=== PATIENT | male | born 1945 | race Caucasian/White ===

== ENCOUNTER → 2024-08-14 06:30 | Outpatient (REF) | payer MEDICARE, SELFPAY | LOC: RCS 06:30 | PROVIDERS: ATTENDING PHYSICIAN Internal Medicine Cardiovascular Disease; FAMILY PHYSICIAN Family Medicine | DX: R93.1 Abnormal findings on diagnostic imaging of heart and coronary circulation (principal); E78.00 Pure hypercholesterolemia, unspecified | CPT/HCPCS: 78452; 93017; 93306; A9500 ==